=== PATIENT | female | born 1965 | race Caucasian/White ===

== ENCOUNTER 2016-11-24 16:01 | Emergency (ER) | payer MEDICARE, OTHER ==
[2016-11-24 17:16] LABS: HEMOGLOBIN 13.4 gm/dl (12.3-15.3); RED BLOOD COUNT 4.4 M/UL (4.00-5.10); WHITE BLOOD COUNT 7.3 K/UL (4.5-11.0)
[2016-11-24 17:31] LABS: BUN/CREATININE RATIO 8 (0-10)
== END 2016-11-24 21:00 | disposition home or self-care (01) ==
LOC: ER1 16:01
PROVIDERS: Emergency Medicine
DX: R07.9 Chest pain, unspecified (principal); F31.9 Bipolar disorder, unspecified; Z88.2 Allergy status to sulfonamides; Z88.5 Allergy status to narcotic agent; F17.210 Nicotine dependence, cigarettes, uncomplicated
CPT/HCPCS: 71010; 80053; 81001; 82550; 82553; 83874; 83880; 84484; 84703; 85025; 85379; 87086; 93005; 99285